=== PATIENT | female | born 2005 | race Caucasian/White ===

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

== ENCOUNTER 2023-05-31 14:28 | Emergency (ER) | payer OTHER, SELFPAY ==
--- NOTE | 2023-05-31 14:30 | ED.GENADULT ---
HPI - General Adult General Chief complaint: Urogenital-Female Stated complaint: Urinary Problems Time Seen by Provider: 05/31/23 14:30 Source: patient Mode of arrival: ambulatory Limitations: no limitations History of Present Illness HPI narrative: 18-year-old female patient presents to the [facility] with complaints of urinary symptoms. Patient states she has been having some low back pain, urgency, frequency with urination. Any specific pain but states when she urinates it feels weird . Denies any blood to the urine. Patient states she has had some diarrhea but denies any nausea vomiting. Denies any fevers, body aches or chills. The patient states that she does have the Nexplanon had and has not had a period in over a year. Related Data Home Medications Medication Instructions Recorded Confirmed etonogestrel 68 mg subdermal 1 implant subdermal ONCE 04/27/21 05/31/23 implant (Nexplanon) sertraline 50 mg tablet (Zoloft) 100 mg PO DAILY 08/04/21 05/31/23 aripiprazole 2 mg tablet 2 mg PO DAILY 05/31/23 05/31/23 Allergies Allergy/AdvReac Type Severity Reaction Status Date / Time No Known Allergies Allergy Verified 05/31/23 14:32 Review of Systems Review of Systems: CONSTITUTIONAL: Denies fever, chills, or sweats. EYES: Denies visual changes, redness, or discharge. ENT: Denies rhinorrhea, congestion, sore throat, or otalgia. CARDIOVASCULAR: Denies chest pain, palpitations, or edema. RESPIRATORY: Denies cough or dyspnea. GASTROINTESTINAL: Denies abdominal pain, nausea, vomiting, or diarrhea. GENITOURINARY: positive dysuria, hematuria. SKIN: Denies rash or itching. MUSCULOSKELETAL: Positive low back pain, denies joint pain, or myalgia. NEUROLOGIC: Denies headache, numbness, or weakness. PSYCHIATRIC: Denies anxiety or depression. [facility] Past Medical History Medical History Anxiety and depression GERD (gastroesophageal reflux disease) Surgical History Surgical History History of ear surgery Tubes bilateral ears 2003, 2005 History of tonsillectomy Social History Social History (Reviewed 05/31/23 @ 15:02 by BEATRIZ Wooten Smoking status: Current every day smoker Tobacco type: e-cigarettes/vaping Alcohol intake: never Substance use: never Living arrangements: with family Occupation/Education: student Gender identity (if verbalized by the patient): Female Comments At the time of my signature I agree with nursing past medical history, surgical, social, and family history. There is no relevant family history pertinent to the presenting complaint. Exam Narrative: GENERAL: Well-appearing, well-nourished, and in no acute distress. HEAD: Normocephalic, atraumatic. EYES: PERRLA and EOMI. ENT: Nares clear, no rhinorrhea or epistaxis. Mucous membranes moist. NECK: Supple. No lymphadenopathy CHEST: Clear to auscultation. No respiratory distress. HEART: Regular rate and rhythm. No murmur heard. Normal peripheral pulses. ABDOMEN: Soft, nontender, nondistended, normal active bowel sounds. no CVA tenderness on percussion EXTREMITIES: Normal range of motion. No edema. SKIN: Warm, dry, no rash. NEURO: No focal deficits. Alert and oriented x3. Course Course Level of Care: Express Care Visit Vital Signs Vital signs: Under signs reviewed Medical Decision Making MDM Narrative Medical decision making narrative: discussed with patient that patient's urine dip was unremarkable however given the fact that she has had symptoms we will go ahead start her on antibiotics today and send her urine off to lab for a culture. Patient verbalized understanding denies any other questions or concerns at this time. Differential Diagnosis Differential Diagnosis: differential diagnosis: Uncomplicated lower UTI, uncomplicated UTI, pyelonephritis Critical Care Time Critical Care T
[2023-05-31 15:00] VITALS: BP 128/74; PULSE 83; RESP 16; TEMP 36.4; O2SAT 100
== END 2023-05-31 15:00 | disposition home or self-care (01) ==
PROVIDERS: Emergency Provider Nurse Practitioner Family; PCP Nurse Practitioner Family
DX: R30.0 Dysuria (principal); F17.290 Nicotine dependence, other tobacco product, uncomplicated; K21.9 Gastro-esophageal reflux disease without esophagitis; F41.9 Anxiety disorder, unspecified; F32.A Depression, unspecified
CPT/HCPCS: 81003; 81025; 87086; 87088; 99213; G0463